=== PATIENT | male | born 1950 | race Caucasian/White ===

== ENCOUNTER 2016-10-03 09:14 | Outpatient (CLI) | payer MEDICARE ==
[~2016-10-03] VITALS: Ht 172.7 cm; Wt 84.1 kg
[~2016-10-03 09:14] MED LIST: ADVICOR 5001 BOTTLE PO; BAYER CHEWABLE81 MG PO; COLACE100 MG PO; CORDARONE200 MG PO; HEMOCYTE PLUS C1 CAP PO; HYDROCODONE-APA1 TAB PO; K-DUR20 MEQ PO; LASIX40 MG PO; LOVASTATIN40 MG PO; MILK OF MAGNESI30 ML PO; NIASPAN1000 MG PO; PLAVIX75 MG PO
[2016-10-03 09:57] VITALS: BP 117/65; Ht 172.7 cm; Wt 84.1 kg
--- NOTE | 2016-10-03 12:31 | NUR ---
1125 ANTIBIOTICS HAVE COMPLETED. IV DC'D WITH CATH INTACT. 1130 RELEASED AMB.
== END 2016-10-03 11:30 | disposition home or self-care (01) ==
LOC: D.OPS 09:14
DX: Z95.2 Presence of prosthetic heart valve (principal)

== ENCOUNTER 2017-03-08 08:57 | Outpatient (CLI) | payer MEDICARE ==
[~2017-03-08] VITALS: Ht 172.7 cm; Wt 84.5 kg
[2017-03-08 09:59] VITALS: BP 124/74; Ht 172.7 cm; Wt 84.5 kg
--- NOTE | 2017-03-08 12:25 | NUR ---
BOTH ANTIBIOTICS COMPLETED. IV REMOVED INTACT. DISCHARGE INSTRUCTIONS GIVEN, VOICED UNDERSTANDING. DISCHARGED HOME.
== END 2017-03-08 12:25 | disposition home or self-care (01) ==
LOC: D.OPS 08:57
DX: Z95.1 Presence of aortocoronary bypass graft (principal); Z95.2 Presence of prosthetic heart valve

== ENCOUNTER 2017-04-10 10:43 | Outpatient (CLI) | payer MEDICARE ==
[~2017-04-10] VITALS: Ht 172.7 cm; Wt 83.6 kg
[2017-04-10 12:18] VITALS: Ht 172.7 cm; Wt 83.6 kg
--- NOTE | 2017-04-10 12:21 | NUR ---
1115-IV SITED TO LEFT ARM X 1 22G.
== END 2017-04-10 13:20 | disposition home or self-care (01) ==
LOC: D.OPS 10:43
DX: Z95.2 Presence of prosthetic heart valve (principal); Z95.1 Presence of aortocoronary bypass graft

== ENCOUNTER 2017-10-12 10:17 | Outpatient (CLI) | payer MEDICARE ==
[~2017-10-12] VITALS: Ht 172.7 cm; Wt 83.6 kg
[2017-10-12 11:29] VITALS: BP 126/72; Ht 172.7 cm; Wt 83.6 kg
== END 2017-10-12 13:25 | disposition home or self-care (01) ==
LOC: D.OPS 10:17
DX: Z95.2 Presence of prosthetic heart valve (principal)

== ENCOUNTER 2018-04-11 08:29 | Outpatient (CLI) | payer MEDICARE ==
[~2018-04-11] VITALS: Ht 172.7 cm; Wt 84.1 kg
[2018-04-11 09:01] VITALS: BP 134/74; Ht 172.7 cm; Wt 84.1 kg
== END 2018-04-11 11:35 | disposition home or self-care (01) ==
LOC: D.OPS 08:29
DX: Z95.2 Presence of prosthetic heart valve (principal); Z01.812 Encounter for preprocedural laboratory examination

== ENCOUNTER 2019-01-24 09:37 | Outpatient (CLI) | payer MEDICARE ==
[~2019-01-24] VITALS: Ht 172.7 cm; Wt 86.4 kg
[2019-01-24 10:28] VITALS: BP 147/74; Ht 172.7 cm; Wt 86.4 kg
== END 2019-01-24 12:43 | disposition home or self-care (01) ==
LOC: D.OPS 09:37
PROVIDERS: ATTEND Internal Medicine Cardiovascular Disease
DX: Z95.2 Presence of prosthetic heart valve (principal)

== ENCOUNTER → 2019-08-01 09:16 | Outpatient (CLI) | payer MEDICARE ==
[~2019-08-01] VITALS: Ht 172.7 cm; Wt 85.0 kg
[2019-08-01 10:04] VITALS: BP 135/66; Ht 172.7 cm; Wt 85.0 kg
== END | disposition home or self-care (01) ==
LOC: D.OPS 09:00
PROVIDERS: ATTEND Internal Medicine Cardiovascular Disease
DX: Z95.2 Presence of prosthetic heart valve (principal)

== ENCOUNTER → 2019-11-12 09:10 | Outpatient (CLI) | payer MEDICARE ==
[~2019-11-12] VITALS: Ht 172.7 cm; Wt 85.5 kg
[2019-11-12 10:11] VITALS: Ht 172.7 cm; Wt 85.5 kg
--- NOTE | 2019-11-12 10:16 | NUR ---
0951 IV STARTED X'S 1 ATTEMPT WITH 20 GAUGE CATH TO LEFT HAND. IV 0.9% NACL 250ML INFUSING WITHOUT DIFFICULTY. Rakel AngelesNAlla 0957 IV INFUSION GENTAMICIN 120MG/100ML INFUSING PER ALARUS PUMP @ 100/ML HR. Rakel JORDAN R.N.
--- NOTE | 2019-11-12 12:51 | NUR ---
0957 IV 0.9% NACL INFUSING @ KVO RATE. GENTAMICIN 120MG/100ML UP & INFUSING PER ALARUS PUMP @ 100ML/HR. SITE WITHOUT REDNESS OR SWELLING. PT SITTING UP IN CHAIR @ BEDSIDE. Rakel JORDAN R.N. 1105 GENTAMICIN INFUSION COMPLETED. VANCOMYCIN 1GM/250ML NACL INFUSING PER ALARUS PUMP @ 250ML/HOUR. NO COMPLAINTS OF REQUESTS VOICED. Rakel JORDAN R.N. 1230 VANCOMYCIN INFUSION COMPLETED. IV DC'ED WITH CATH INTACT. PRESSURE TO SITE. NO BLEEDING NOTED. PT PROVIDED WITH D/C INSTRUCTIONS. VOICED UNDERSTANDING. RELEASED AMBULATORY FROM OPS/NP. TO DR. KONG'S OFFICE FOR DENTAL APPOINTMENT. Raekl JORDAN R.N.
== END | disposition home or self-care (01) ==
LOC: D.OPS 09:10
PROVIDERS: ATTEND Internal Medicine Cardiovascular Disease
DX: Z95.2 Presence of prosthetic heart valve (principal)

== ENCOUNTER 2020-02-06 11:21 | Outpatient (CLI) | payer MEDICARE ==
[~2020-02-06] VITALS: Ht 172.7 cm; Wt 85.0 kg
[2020-02-06 12:37] VITALS: BP 110/64; Ht 172.7 cm; Wt 85.0 kg
--- NOTE | 2020-02-06 14:26 | NUR ---
IV ANTIBIOTIC INFUSIONS COMPLETED. IV REMOVED WITH CATHALON INTACT. DC'D TO GET TO DENTAL APPOINTMENT. NO S/S OF ACUTE DISTRESS NOTED.
== END 2020-02-06 14:21 | disposition home or self-care (01) ==
LOC: D.OPS 11:21
PROVIDERS: ATTEND Internal Medicine Cardiovascular Disease
DX: Z95.2 Presence of prosthetic heart valve (principal)

== ENCOUNTER → 2020-05-07 13:30 | Outpatient (CLI) | payer MEDICARE ==
[2020-02-06 12:37] VITALS: BMI 28.4
== END | disposition home or self-care (01) ==
LOC: D.US 13:30
PROVIDERS: ATTEND Internal Medicine Cardiovascular Disease
DX: I65.29 Occlusion and stenosis of unspecified carotid artery (principal)

== ENCOUNTER 2021-02-18 15:00 | Day surgery (SDC) | payer MEDICARE ==
[~2021-02-18] VITALS: Ht 172.7 cm; Wt 84.1 kg
[2021-02-18 11:45] VITALS: Ht 172.7 cm; Wt 84.1 kg
== END 2021-02-18 18:23 | disposition home or self-care (01) ==
LOC: D.OPS 15:00
PROVIDERS: ATTEND Internal Medicine Cardiovascular Disease
DX: Z95.2 Presence of prosthetic heart valve (principal)